=== PATIENT | female | born 1995 | race Asian ===

== ENCOUNTER 2022-01-02 03:20 | Emergency (ER) | payer SELFPAY ==
[~2022-01-02] VITALS: Ht 160 cm; Wt 53.1 kg
[2022-01-02 03:20] VITALS: BP 93/54
--- NOTE | 2022-01-02 03:20 | NUR ---
26 Y/O FEMALE BIB FAMILY FROM HOME, C/O OD AT APPROX 0300. FAMILY STATES PATIENT WAS FOUND BREATHING BUT UNREPONSIVE. PER FAMILY PT MAY HAVE TAKEN FENTANYL AND/OR XANAX OF UNKOWN AMOUNT. PT WAS GIVEN 2 DOSES OF NARCAN INTRANASAL AND 2 DOSES IM WITH NO CHANGE IN STATUS. PT WAS BROUGHT TO ER VIA PRIVATE AUTO. PER FAMILY PT HAS A HX OF RECREATIONAL DRUG USE. NO OBVIOUS TRAUMA, BRUISING, OR CYANOSIS. PER FAMILY PT HAS NO PMH/RX NKA
--- NOTE | 2022-01-02 03:23 | NUR ---
PT TAKEN TO BED 10 VIA WHEELCHAIR
--- NOTE | 2022-01-02 03:41 | NUR ---
IV ESTABLISHED 20G LEFT AC. BLOOD COLLECTED AND WALKED TO LAB
[2022-01-02] MEDS ORDERED: NALOXONE 0.4 MG/ML VIAL IVP ONE (03:45)
[2022-01-02] MEDS ORDERED: NACL 0.9% 1,000 ML IV ONE (03:45)
[2022-01-02 04:01] LABS: BASOPHILS # (AUTO) 0.1 K/uL (0.00-0.22); BASOPHILS % (AUTO) 0.8 % (0.0-2.0); EOSINOPHILS # (AUTO) 0.1 K/uL (0-0.4); EOSINOPHILS % (AUTO) 0.8 % (0.0-4.0); HEMATOCRIT 41.9 % (36-48); HEMOGLOBIN 14.5 g/dL (12.0-16.0); LYMPHOCYTES # (AUTO) 2.4 K/uL (2.5-16.5); LYMPHOCYTES % (AUTO) 22.4 % (20.5-51.1); MEAN CORPUSCULAR HEMOGLOBIN 32 pg (27-31); MEAN CORPUSCULAR HGB CONC 35 g/dL (33-37); MONOCYTES # (AUTO) 0.5 K/uL (0.8-1.0); MONOCYTES % (AUTO) 4.5 % (1.7-9.3); NEUTROPHILS # (AUTO) 7.7 K/uL (1.8-7.7); NEUTROPHILS % (AUTO) 71.5 % (42.2-75.2); PLATELET COUNT (AUTO) 240 K/uL (140-450); RED BLOOD CELL COUNT(AUTO) 4.55 MIL/uL (4.20-5.40); RED CELL DISTRIBUTION WIDTH 13.3 % (11.6-13.7); WHITE BLOOD COUNT (AUTO) 10.8 K/uL (4.8-10.8)
[2022-01-02 04:08] LABS: ALBUMIN 4.1 g/dL (3.4-5.0); ANION GAP 15.5 (8-16); ASPARTATE AMINOTRANSFERASE 39 U/L (15-37); CARBON DIOXIDE 26.6 mmol/L (21-32); CHLORIDE 103 mmol/L (98-107); CREATININE 0.9 mg/dL (0.6-1.3); GFR ARICAN-AMERICAN 97 mL/min (>90); GLUCOSE 77 mg/dL (74-106); POTASSIUM 4.1 mmol/L (3.5-5.1); SODIUM SERUM 141 mmol/L (136-145); TOTAL BILIRUBIN 0.5 mg/dL (0.0-1.0); UREA NITROGEN, BLOOD 12 mg/dL (7-18)
--- NOTE | 2022-01-02 04:10 | NUR ---
CALLED TO BEDSIDE FOR OVERDOSE PT @0323. PT AWAKE OR OPEN EYES WITH STERNAL RUB. PT ABLE TO PROTECT HER AIRWAY AND HAVE GAG REFLEX AT THIS TIME. PT BREATHING AROUND 14 TO 20. PLACED PT ON PetCO2 MONITORING WITH O2. PetCO2 READING 36 TO 40. SPO2 100% ON 2L NC. RN WILL CONTINUE TO MONITOR PT.
[2022-01-02 04:23] LABS: SALICYLATE < 2.8 mg/dL (2.8-20.0)
--- NOTE | 2022-01-02 04:44 | NUR ---
Pediatric Urinary catheter inserted utilizing sterile technique. Immediate return of 50 ml clear straw colored urine noted. Urine sample collected and sent to lab. Pt tolerated procedure well.
--- NOTE | 2022-01-02 04:44 | NUR ---
URINE COLLECTED AND WALKED TO LAB
--- NOTE | 2022-01-02 04:54 | NUR ---
YAZMIN MOFFETT (BOYFRIEND)
--- NOTE | 2022-01-02 04:59 | NUR ---
SHUKRI/ARGENT[place] COLLECTED AND WALKED TO LAB
[2022-01-02 05:01] LABS: BARBITURATE, URINE NEGATIVE ng/ml (NEG <=200); BENZODIAZEPINE, URINE NEGATIVE ng/mL (NEG <=200); CANNABINOID, URINE NEGATIVE ng/mL (NEG <=50); COCAINE, URINE NEGATIVE ng/mL (NEG <=300); PHENCYCLIDINE SCREEN,URINE NEGATIVE ng/mL (NEG <=25)
[2022-01-02 05:02] LABS: OPIATE, URINE NEGATIVE ng/mL (NEG <=2000)
--- NOTE | 2022-01-02 05:10 | NUR ---
pt is now a/ox4 and able to abulate to the restroom unassisted.
--- NOTE | 2022-01-02 05:14 | NUR ---
UNABLE TO OBTAIN ACCURATE MED REC DUE TO PT ALOC
--- NOTE | 2022-01-02 07:11 | NUR ---
Pt report given to kaushal lugo. Transfer of care at this time.
[2022-01-02] MEDS ORDERED: NALO4SPR NS (07:24)
[2022-01-02 07:25] VITALS: BP 128/78
--- NOTE | 2022-01-02 07:26 | NUR ---
PT AOX4. VERBALIZES DC INSTRUCTIONS. NAD. STABLE ON DC.
--- NOTE | 2022-01-05 18:33 | NUR ---
LATE ENTRY. 0.9% NS DISCONTINUED 01/02/22 AT 0726
== END 2022-01-02 07:40 | disposition home or self-care (01) ==
LOC: MED 03:20
DX: R55 Syncope and collapse (principal); Z20.822 Contact with and (suspected) exposure to COVID-19; T40.411A Poisoning by fentanyl or fentanyl analogs, accidental (unintentional), initial encounter; Y92.89 Other specified places as the place of occurrence of the external cause
CPT/HCPCS: 36415; 80053; 80305; 85025; 87426; 93005; 96361; 96374; 99284; G0480; G0482; J2310; J7030